=== PATIENT | female | born 1985 | race Caucasian/White ===

== ENCOUNTER → 2023-11-07 13:21 | Outpatient (REF) | payer OTHER, SELFPAY | LOC: PNTC 13:21 | PROVIDERS: ATTENDING PHYSICIAN Obstetrics & Gynecology | DX: O35.5XX0 Maternal care for (suspected) damage to fetus by drugs, not applicable or unspecified (principal); O10.019 Pre-existing essential hypertension complicating pregnancy, unspecified trimester | CPT/HCPCS: 76805 ==

== ENCOUNTER → 2023-11-14 10:42 | Outpatient (REF) | payer OTHER, SELFPAY | LOC: PNTC 10:42 | PROVIDERS: ATTENDING PHYSICIAN Obstetrics & Gynecology | DX: O28.3 Abnormal ultrasonic finding on antenatal screening of mother (principal) | CPT/HCPCS: 76815 ==

== ENCOUNTER → 2023-12-06 07:25 | Outpatient (REF) | payer OTHER, SELFPAY | LOC: PNTC 07:25 | PROVIDERS: ATTENDING PHYSICIAN Obstetrics & Gynecology | DX: O35.5XX0 Maternal care for (suspected) damage to fetus by drugs, not applicable or unspecified (principal); O16.9 Unspecified maternal hypertension, unspecified trimester | CPT/HCPCS: 76811 ==

== ENCOUNTER → 2024-01-03 07:23 | Outpatient (REF) | payer OTHER, SELFPAY | LOC: PNTC 07:23 | PROVIDERS: ATTENDING PHYSICIAN Obstetrics & Gynecology | DX: O99.210 Obesity complicating pregnancy, unspecified trimester (principal); I10 Essential (primary) hypertension | CPT/HCPCS: 76816 ==

== ENCOUNTER → 2024-01-31 07:27 | Outpatient (REF) | payer OTHER, SELFPAY | LOC: PNTC 07:27 | PROVIDERS: ATTENDING PHYSICIAN Obstetrics & Gynecology | DX: O99.210 Obesity complicating pregnancy, unspecified trimester (principal); O10.119 Pre-existing hypertensive heart disease complicating pregnancy, unspecified trimester | CPT/HCPCS: 76816 ==

== ENCOUNTER → 2024-02-28 07:20 | Outpatient (REF) | payer OTHER, SELFPAY | LOC: PNTC 07:20 | PROVIDERS: ATTENDING PHYSICIAN Obstetrics & Gynecology | DX: O99.210 Obesity complicating pregnancy, unspecified trimester (principal); O10.119 Pre-existing hypertensive heart disease complicating pregnancy, unspecified trimester | CPT/HCPCS: 76816 ==

== ENCOUNTER → 2024-03-06 07:00 | Outpatient (REF) | payer OTHER, SELFPAY | LOC: PNTC 07:00 | PROVIDERS: ATTENDING PHYSICIAN Obstetrics & Gynecology | DX: O10.119 Pre-existing hypertensive heart disease complicating pregnancy, unspecified trimester (principal); O09.519 Supervision of elderly primigravida, unspecified trimester; O99.210 Obesity complicating pregnancy, unspecified trimester | CPT/HCPCS: 59025; 76815 ==

== ENCOUNTER → 2024-03-13 06:56 | Outpatient (REF) | payer OTHER, SELFPAY | LOC: PNTC 06:56 | PROVIDERS: ATTENDING PHYSICIAN Obstetrics & Gynecology | DX: O10.119 Pre-existing hypertensive heart disease complicating pregnancy, unspecified trimester (principal); O09.519 Supervision of elderly primigravida, unspecified trimester; O99.210 Obesity complicating pregnancy, unspecified trimester | CPT/HCPCS: 59025; 76815 ==

== ENCOUNTER → 2024-03-20 06:56 | Outpatient (REF) | payer OTHER, SELFPAY | LOC: PNTC 06:56 | PROVIDERS: ATTENDING PHYSICIAN Obstetrics & Gynecology | DX: O99.210 Obesity complicating pregnancy, unspecified trimester (principal); O16.9 Unspecified maternal hypertension, unspecified trimester | CPT/HCPCS: 59025; 76815 ==

== ENCOUNTER → 2024-03-27 06:57 | Outpatient (REF) | payer OTHER, SELFPAY | LOC: PNTC 06:57 | PROVIDERS: ATTENDING PHYSICIAN Obstetrics & Gynecology | DX: O99.210 Obesity complicating pregnancy, unspecified trimester (principal); O10.119 Pre-existing hypertensive heart disease complicating pregnancy, unspecified trimester | CPT/HCPCS: 59025; 76816 ==

== ENCOUNTER → 2024-04-03 06:55 | Outpatient (REF) | payer OTHER, SELFPAY | LOC: PNTC 06:55 | PROVIDERS: ATTENDING PHYSICIAN Obstetrics & Gynecology | DX: O99.210 Obesity complicating pregnancy, unspecified trimester (principal); O16.9 Unspecified maternal hypertension, unspecified trimester | CPT/HCPCS: 36415; 59025; 76815 ==

== ENCOUNTER → 2024-04-10 06:56 | Outpatient (REF) | payer OTHER, SELFPAY | LOC: PNTC 06:56 | PROVIDERS: ATTENDING PHYSICIAN Obstetrics & Gynecology | DX: O99.210 Obesity complicating pregnancy, unspecified trimester (principal); O10.119 Pre-existing hypertensive heart disease complicating pregnancy, unspecified trimester | CPT/HCPCS: 59025; 76815 ==

== ENCOUNTER 2024-04-12 19:20 | Inpatient (IN) | payer OTHER, SELFPAY ==
[2024-04-12 19:53] VITALS: BP 144/93; BMI 33.5
[2024-04-12] MEDS: CYTOTEC 50 MICROGRAM VAG (20:30)
[2024-04-12 20:39] LABS: % Basophils 0.3 % (0-2); % Eosinophils 2.7 % (0-6); % Immature Granulocytes 0.6 % (0-0.5); % Lymphocytes 17.5 % (20.5-51.1); % Monocytes 7.6 % (1.7-9.3); % Neutrophils 71.3 % (42.2-75.2); Absolute Eosinophils 0.2 10^3/uL (0-0.7); Absolute Lymphocytes 1.2 10^3/uL (1.2-3.4); Absolute Monocytes 0.5 10^3/uL (0.1-0.6); Hematocrit 30.5 % (37.0-47.0); Hemoglobin 10.8 g/dL (12.0-16.0); Mean Corp Hgb Conc. 35.4 g/dL (33.0-37.0); Mean Corpuscular Hgb 29.3 pg (27.0-31.0); Mean Corpuscular Volume 82.7 fL (81.0-99.0); Mean Platelet Volume 10.7 fL (7.4-10.4); Nucleated Red Blood Cells % 0 %; Platelet Count 296 10^3/uL (130-400); Red Blood Cell Count 3.69 10^6/uL (4.20-5.40); Red Cell Dist. Width 12.1 % (11.5-14.5)
[2024-04-12 21:12] LABS: ALT (SGPT) 13 U/L (0-35); AST (SGOT) 25 U/L (14-36); Albumin 3.3 g/dl (3.5-5.0); Alkaline Phosphatase 207 U/L (38-126); Blood Urea Nitrogen 9 mg/dl (7-17); Calcium 9.7 mg/dl (8.4-10.2); Carbon Dioxide 16 mmol/L (22-30); Chloride 105 mmol/L (98-107); Estimated Creatinine Clearance > 125 ml/min; Glucose 70 mg/dl (70-99); Potassium 3.9 mmol/L (3.5-5.1); Sodium 135 mmol/L (135-145); Total Bilirubin 0.4 mg/dl (0.2-1.3); Total Protein 6.6 g/dl (6.3-8.2); eGFR > 60.00
[2024-04-13] MEDS: CYTOTEC 50 MICROGRAM PO ×2 (02:20→06:13)
[2024-04-13] MEDS: TOPROL XL 25 MG PO (07:57)
[2024-04-13 09:00] LABS: Protein/creatinine Ratio 0.3; Urine Protein 23 mg/dl
[2024-04-13] MEDS: PITOCIN 30 UNITS/NSS 500 ML IV (11:35)
[2024-04-13] MEDS: LR 1000 IV ×3 (11:36→19:00)
[2024-04-13] MEDS: FLUSH (NSS) 1 FLUSH IV (11:36)
[2024-04-13] MEDS: PENICILLIN 110 UNITS IV (11:47)
[2024-04-13] MEDS: MORPHINE SULFATE 2 MG IV (14:01)
[2024-04-13] MEDS: PENICILLIN 55 UNITS IV (15:45)
[2024-04-13] MEDS: FENTANYL/BUPIVACAINE 100 EPIDURAL (18:26)
[2024-04-13] MEDS: SUBLIMAZE 100 MCG EPIDURAL (18:26)
[2024-04-13] MEDS: ANCEF 10 IV (19:27)
[2024-04-13] MEDS: BICITRA 30 ML PO (19:27)
[2024-04-13] MEDS: ZITHROMAX INFUSION 250 IV (19:28)
[2024-04-13] MEDS: TYLENOL 1000 MG PO (19:28)
[2024-04-13 20:11] LABS: B.E. Cord ABG -9.4 mMOL/L; Cord ABG Comment CORD BLOOD; HCO3 Cord ABG 22.2 mmol/L; O2 Saturation % Cord ABG 7.5 %; PCO2 Cord ABG 75 mmHg; PO2 Cord ABG 7 mmHg; pH Cord ABG 7.08
[2024-04-13 20:14] LABS: HCO3 Cord ABG 21.2 mmol/L; O2 Saturation % Cord ABG 10.2 %; PCO2 Cord ABG 70 mmHg; PO2 Cord ABG 10 mmHg; pH Cord ABG 7.09
[2024-04-13] MEDS: PENICILLIN IV (21:43)
[2024-04-13] MEDS: TORADOL 15 MG IV (22:04)
[2024-04-13] MEDS: PERCOCET 5/325 1 TABLET PO (23:43)
[2024-04-14] MEDS: TORADOL 15 MG IV ×3 (04:01→16:14)
[2024-04-14 04:52] LABS: Hematocrit 28.1 % (37.0-47.0); Hemoglobin 9.8 g/dL (12.0-16.0); Mean Corp Hgb Conc. 34.9 g/dL (33.0-37.0); Mean Corpuscular Volume 83.1 fL (81.0-99.0); Platelet Count 285 10^3/uL (130-400); Red Blood Cell Count 3.38 10^6/uL (4.20-5.40); White Blood Cell Count 19.1 10^3/uL (4.8-10.8)
[2024-04-14] MEDS: TOPROL XL PO (09:08)
--- NOTE | 2024-04-14 15:26 | W.PN.ANS.POP ---
Anesthesia Post Operative
- Anesthesia Post Op Note
Vital Signs Stable-See Nursing Note: Yes
Airway Patent: Yes
Adequate Pain Control: Yes
Change in Mental Status: No
Current Postoperative Nausea & Vomiting: No
Anesthesia Complications: No
General Anesthetic Recall: No
Unplanned Admission: No
Post Op Hydration Adequate: Yes
[2024-04-14] MEDS: TYLENOL 650 MG PO (20:25)
[2024-04-14] MEDS: MOTRIN 600 MG PO (22:05)
[2024-04-15] MEDS: MOTRIN 600 MG PO (04:24)
[2024-04-15] MEDS: TYLENOL 650 MG PO (04:25)
[2024-04-15] MEDS: TOPROL XL PO (08:44)
--- NOTE | 2024-04-15 12:03 | W.DS.TRANS ---
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
-
Discharge Instructions:
Discharge Diagnosis/Procedures s/p primary low transverse section
Instructions:
Stand-Alone Forms: [facility]DRP Delivery
Changes to Home Medications: No
Discharge Medications:
DC Medications w/original date entered in [email or web address]
metoprolol succinate 25 mg PO DAILY 04/12/24
acetaminophen 325 mg tablet 650 mg (2 x 325 mg) PO Q4HPRN PRN mild pain #30 tabs 04/15/24
ibuprofen 600 mg tablet 600 mg PO Q6HPRN PRN cramps #90 tabs 04/15/24
oxycodone-acetaminophen 5 mg-325 mg tablet 1 tab PO Q4HPRN PRN moderate pain #5 tabs 04/15/24
sennosides 8.6 mg-docusate sodium 50 mg tablet 1 tab PO DAILYPRN PRN constipation #30 tabs 04/15/24
Home Medication Changes
Pending Results: No
Total time spent discharging patient (in min): 30
--- NOTE | 2024-04-15 12:03 | W.DCSUMMARY ---
Discharge Summary
Discharge Data
Date of Admission: 04/12/24
Date of Discharge: 04/15/24
Total time spent discharging patient (in min): 30
-
Pending Results: Yes
Additional Pending Results:
placenta path
Hospital Course
Patient is a 38yo who presented to labor and delivery for IOL for chronic hypertension. She was taking metoprolol 25mg daily. During admission she met criteria for superimposed preeclampsia w/o SF. She received cytotec, a cook balloon, and
pitocin. Patient underwent a primary low transverse section for persistent category 2 tracing. c section was significant for placental abruption and couvelaire uterus. Following delivery, baby was transferred to [place] due to PPHN and
availability of ECMO if needed. On POD#1, BPs were 110-120s/70s and metoprolol was held. On PP day 2 BPs remained the same. Patient desired discharge home so she was able to see her at [place]. She had no signs or symptoms of preeclampsia and
was meeting all her milestones. She was instructed to take her BP at home and restart meds and BPs were increasing. She was given strict discharge instructions and return precautions. She was instructed to follow up in 2 weeks for an
incision check.
Discharge Plan
-
Patient Disposition: Home (Routine Discharge)
Discharge Diagnosis/Procedures: s/p primary low transverse section
Condition: Good
Stand Alone Forms: [facility]DRP Delivery
Referrals:
Anupam Biswas MD [Family Provider] -
Morena George MD [Active] - in two weeks
Prescriptions:
New
ibuprofen 600 mg Tablet
600 mg PO Q6HPRN PRN (Reason: cramps) Qty: 90 0RF
acetaminophen 325 mg Tablet
650 mg PO Q4HPRN PRN (Reason: mild pain) Qty: 30 0RF
sennosides-docusate sodium 8.6-50 mg Tablet
1 tab PO DAILYPRN PRN (Reason: constipation) Qty: 30 0RF
oxycodone-acetaminophen 5-325 mg Tablet
1 tab PO Q4HPRN PRN (Reason: moderate pain) Qty: 5 0RF
No Action
metoprolol succinate tablet
25 mg PO DAILY
Discharge Orders:
Discharge Patient (As Directed); Ordered 04/15/24
Ordered By: Ary Martin
Discharge Date and Time
Discharge Date/Time: 04/15/24 10:13
Print Language: BRAZILIAN
[2024-04-17 11:25] LABS: Syphilis/T. pallidum Ab Reflex Negative (Negative)
== END 2024-04-15 10:13 | disposition home or self-care (01) | DRG 788 ==
LOC: LDRP 19:20
PROVIDERS: Obstetrics & Gynecology; ADMITTING PHYSICIAN Obstetrics & Gynecology; FAMILY PHYSICIAN Family Medicine
PROC: 10D00Z1 Extraction of Products of Conception, Low, Open Approach (ICD-10-PCS; 2024-04-13)
DX: O11.4 Pre-existing hypertension with pre-eclampsia, complicating childbirth (principal); O99.824 Streptococcus B carrier state complicating childbirth; O76 Abnormality in fetal heart rate and rhythm complicating labor and delivery; O34.13 Maternal care for benign tumor of corpus uteri, third trimester; D25.2 Subserosal leiomyoma of uterus; O43.193 Other malformation of placenta, third trimester; Z3A.38 38 weeks gestation of pregnancy; Z37.0 Single live birth; O45.8X3 Other premature separation of placenta, third trimester
CPT/HCPCS: 88307; 80053; 82570; 82803; 84156; 85025; 85027; 86780; 86850; 86900; 86901; C1765